=== PATIENT | female | born 1965 | race African-American/Black ===

== ENCOUNTER 2021-12-05 12:05 | Day surgery (SDC) | payer OTHER ==
[2021-12-05] MEDS ORDERED: FERRIC CARBOXYMALTOSE 750 MG in SODIUM CHLORIDE 250 ML IVPB ONE (13:00)
[2021-12-05 14:25] VITALS: BP 133/94; PULSE 70; RESP 19; TEMP 98.8
== END 2021-12-05 14:56 | disposition home or self-care (01) ==
LOC: FINFUSION 12:05 → FM/S 12:13 → FINFUSION 14:56
PROVIDERS: ATTEND Family Medicine
PROC: 3E033GC Introduction of Other Therapeutic Substance into Peripheral Vein, Percutaneous Approach (ICD-10-PCS; principal; 2021-12-05)
DX: D50.9 Iron deficiency anemia, unspecified (principal)
CPT/HCPCS: 96365; J1439

== ENCOUNTER 2021-12-12 11:54 | Day surgery (SDC) | payer OTHER ==
[2021-12-12] MEDS ORDERED: FERRIC CARBOXYMALTOSE 750 MG in SODIUM CHLORIDE 250 ML IVPB ONE (12:30)
[2021-12-12 12:45] VITALS: BP 141/65; RESP 18; TEMP 98.1
[2021-12-12 13:13] VITALS: PULSE 75
== END 2021-12-12 13:13 | disposition home or self-care (01) ==
LOC: FINFUSION 11:54 → FM/S 11:55 → FINFUSION 13:13
PROVIDERS: ATTEND Family Medicine
PROC: 3E033GC Introduction of Other Therapeutic Substance into Peripheral Vein, Percutaneous Approach (ICD-10-PCS; principal; 2021-12-12)
DX: D50.9 Iron deficiency anemia, unspecified (principal)
CPT/HCPCS: 96365; J1439